=== PATIENT | male | born 1980 | race Caucasian/White ===

== ENCOUNTER 2019-07-19 19:48 | Emergency (ER) | payer OTHER ==
[2019-07-19 20:16] VITALS: BMI 22.4
--- NOTE | 2019-07-19 20:16 | PDOC ---
History of Present Illness - General Chief Complaint: CVA/TIA Stated Complaint: LT HAND NUMBNESS Time Seen by Provider: 07/19/19 20:15 History Source: Patient Exam Limitations: No Limitations - History of Present Illness Initial Comments: 07/19/19 20:32 PCP: Dr. Cook HPI: 39yo M pmh DM, HTN, Hypothyroidism, Bipolar disorder presenting with 2 days of L had numbness in all fingers. Patient reports that numbness started at 4PM on 07/17/2019. He presented to [facility], was given 2L IVF, Insulin, discharged and told he would always have numbness. He reports the numbness has been unchanged over this whole period. Denies any weakness, changes in vision, difficulty speaking / finding words, walking. He says the only thing that bothers him is the numbness - which he says is equal throughout all five digits. Last PCP visit was 2-3 months ago, stopped taking his metformin due to impotence he attributes as a side effect. EMS BGM was 152 en route. No numbness in RUE. All: PCN and Sulfa Drugs --> Anaphylaxis Meds: Per chart PMH: As above PSH: Tonsils / Adenoids, Remotely Past History - Travel Traveled outside of the country in the last 30 days: No Close contact w/someone who was outside of country & ill: No - Past Medical History Allergies/Adverse Reactions: Allergies Allergy/AdvReac Type Severity Reaction Status Date / Time No Known Allergies Allergy Verified 07/19/19 20:16 Home Medications: Ambulatory Orders Amoxicillin/Potassium Clav [Augmentin 875-125 Tablet] 1 each PO BID 7 Days #14 tablet 07/19/19 Neuro Specific PMHX - Complaint Specific PMHX Glaucoma: No Herniated Disk: No Laminectomy: No Migraine: No Multiple Sclerosis: No Neuropathy: No TIA: No Review of Systems - Review of Systems Able to Perform ROS?: Yes Is the patient limited [place]an proficient: Yes Constitutional: No: Chills, Diaphoresis, Fever, Weight Stable HEENTM: No: Recent change in vision, Double Vision, Nose Congestion, Throat Pain Respiratory: No: Cough, Orthopnea, Shortness of Breath, Wheezing, Productive cough Cardiac (ROS): No: Chest Pain, Irregular Heart Rate, Lightheadedness, Palpitations, Syncope, Chest Tightness ABD/GI: No: Blood Streaked Bowels, Constipated, Diarrhea, Nausea, Poor Appetite , Poor Fluid Intake, Rectal Bleeding, Vomiting : No: Burning, Dysuria, Frequency Musculoskeletal: No: Muscle Pain, Muscle Weakness Integumentary: No: Pallor, Pruritus, Rash, Sweating Neurological: No: Headache, Numbness, Tingling, Weakness Psychiatric: No: Stressors, Change in Appetite Endocrine: No: Increased Hunger, Increased Thirst, Increased Urine, Unexplained Weight Gain, Unexplained Weight Loss Hematologic/Lymphatic: No: Anemia, Blood Clots, Easy Bleeding All Other Systems: Reviewed and Negative *Physical Exam - Physical Exam 07/19/19 20:34 Vitals reviewed, AFVSS GEN: Well appearing, appears stated age, NAD, comfortable. AAOx3. HEENT: NCAT, EOMI, PERRL. Sclera anicteric, noninjected. No facial asymmetry. Moist mucous membranes. Normal voice. Trachea midline. CV: RRR, S1/S2, no murmurs / rubs / gallops appreciated. LUNG: CTAB, normal work of breathing. No wheezes, rales, rhonchi. No cough. Speaking full sentences. GI: Soft, NTND, +BS, no guarding, no rebound. No masses. Neg CVAT b/l. EXTREMITIES: 2+ distal pulses. No LE edema. No obvious deformities of all extremities. SKIN: Warm, dry, no rashes appreciated, non-jaundiced. PSYCH: Normal mood and affect. Cooperative and appropriate. NEURO: CN 2-12 intact. Moving all extremities well, normal gait. Normal strength throughout. Sensation reduced L fingers. Otherwise normal. Normal [id number] (mild resting tremor, chronic), normal rapid alternating movements. NIH Stroke Scale - Last Known Well Date/Time & Onset Date Last Known Well: 07/17/19 Time Last Known Well: 16:00 - Initial Evaluation Level of consciousness: Alert Ask patient the month and their age: Answers both correctly Ask patient to open & close eyes; make fist and let go: Obeys both correctly Best gaze (horizontal eye movement): Normal Visual field testing: No visual field loss Facial paresis (Show teeth/raise eyebrows/close eyes tight): Normal symmetrical movement Motor Function: Left Arm: Normal Motor Function: Right Arm: Normal (extends arm 90 (or 45) degrees for 10 seconds without drift Motor Function: Left Leg: Normal (extends leg 30 degrees for 5 seconds without drift) Motor Function: Right Leg: Normal (extends leg 30 degrees for 5 seconds without drift) Limb Ataxia: No ataxia Sensory(Use pinprick test arms,legs,trunk,face/side to side): Normal Best language (Describe picture, name items, read sentences): No Aphasia Dysarthria (read several words): Normal articulation Extinction and Inattention: No abnormality - Total Score NIH Stroke Scale Score: 0 tPA Exclusion checklist 3-4.5h - Time Elapsed Date last known well: 07/17/19 Time last known well: 16:00 Elaspsed time: 2 Day(s) and 8 Hour(s) and 0 Minutes - Thrombolytic Therapy Candidate Is patient eligible for thrombolytic therapy: No - Exclusion Criteria 3-4.5 hr SBP greater than 185 or DBP greater than 110mmHg despite tx: No Recent IC/spinal surgery,head trauma or stroke<3mos.: No Hx IC hemorrhage, IC neoplasm, AV malformation or aneurysm: No Active internal bleeding: No Blding diathesis(low plt ct, inc PTT,INR>1.7 or use of NOAC): No Symptoms suggest subarachnoid hemorrhage: No CT demonstrates multilobar infarct(>1/3 cerebral hemiphere): No Arterial puncture at noncompressible site in previous 7 days: No Blood glucose concentration less than 50mg/dL (2.7mmol/L): No - Relative Exclusion Criteria 3-4.5 hr Life expectancy <1 yr or severe co-morbid illness: No : No Patient/family refused: No Rapid improvement: No Stroke severity too mild: No Recent acute RI (w/in previous 3 months): No Seizure at onset with postictal residual neuro impairments: No Major surgery or serious trauma w/in previous 14 days: No Recent GI or hemorrhage (w/in previous 21 days): No - Add'l Relative Exclusion 3-4.5 hr Age > 80: No Hx of both diabetes AND prior ischemic stroke: No Taking an oral anticoagulant regardless of INR: No NIHSS >25: No - Ineligibility reason(s) Reasons No tPA given: Outside of window - delayed arrival TIA Risk Factors - ABCD Score Age: Age < 60 Blood Pressure: SBP < 140 and DBP < 90 Duration: TIA duration = or > 60min Diabetes: Yes Critical Care Time/MDM Note - Medical Decision Making Note: 07/19/19 20:37 39yo M pmh DM, HTN, Hypothyroidism, Bipolar disorder presenting with 2 days of L had numbness in all fingers. History notable for numbness for several days. Exam notable for normal neuro exam aside from sensation in a non-focal distribution, normal vitals. Outside the window for TPA. NIHSS 0. 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 - CBC, CMP Dispo: Home 07/19/19 21:10 - CT Cervical Spine - Robaxin 1000 mg - Motrin 600 mg 07/19/19 22:25 - Glucose elevated on CMP - 1L IVF given Dispo: Home 07/19/19 23:00 - CT without nerve impingement - Fluid in mastoid air cells, thickening / fluid in external auditory canal 07/19/19 23:30 - Augmentin for ear infection - BGM s/p IVF, Insulin as appropriate 07/20/19 00:00 - BGM 421 - 6 U Regular Insulin Dispo: Home Discharge - Discharge Information Problems reviewed: Yes Clinical Impression/Diagnosis: Paresthesia and pain of left extremity, Elevated blood sugar Otitis media Qualifiers: Otitis media type: other nonsuppurative Chronicity: unspecified Laterality: left Qualified Code(s): H65.92 - Unspecified nonsuppurative otitis media, left ear Condition: Improved Disposition: HOME - Admission No - Additional Discharge Information Prescriptions: Amoxicillin/Potassium Clav [Augmentin 875-125 Tablet] 1 each PO BID 7 Days #14 tablet - Follow up/Referral Referrals: Adarsh Cook [Primary Care Provider] - Adrash Auguste MD [Staff Physician] - - Patient Discharge Instructions Additional Instructions: Continue your home medications as prescribed. A prescription for antibiotics has been sent to your pharmacy. Please pick this up and take it as directed. Call Dr. Auguste (ENT) for evaluation of your ear symptoms. Follow up with your primary care doctor early next week. It is important to discuss your diabetes medications and management as we discussed. Return to the ED for any new or concerning symptoms. - Post Discharge Activity
[2019-07-19] MEDS ORDERED: IBUPROFEN 600 MG TABLET (FP) PO ONE ×2 (21:07→21:15)
[2019-07-19] MEDS ORDERED: METHOCARBAMOL 500 MG TABLET PO ONE (21:08)
--- NOTE | 2019-07-19 21:12 | PDOC ---
Attending Attestation - Resident Resident Name: Liang Moran - ED Attending Attestation I have performed the following: I have examined & evaluated the patient, The case was reviewed & discussed with the resident, I agree w/resident's findings & plan - HPI HPI: 07/21/19 21:47 Pt comes with left fingertip numbness. He called an ambulance. Here he is hanging out and eating junk food from the vending machines. - Physicial Exam PE: 07/19/19 23:29 Pt comes with left fingertip numbness. Pt has no strength deficit, no other numbness; no chemical exposure. Afebrile VSS normal neuro exam HEENT: left TM not visualized ; likely middle ear infection Heart/lungs normal Abd soft NT ND No extremity tenderness no rashes - Medical Decision Making 07/19/19 23:31 Pt is depressed he doesn't take any DM meds. He stopped taking metformin because he is experiencing erectile dysfn. He and tell me that their home is a "filthy" mess, as nobody cleans, and as they throw all their garbage in the home. I explained to patient that he needs to control blood sugar, as high sugar can cause ED High sugar can also contribute to worsening infections. Pt will be treated for his OM Pt has been advised to stop using qtips He will be given Dr. Auguste's name for ENT follow up
[2019-07-19] MEDS ORDERED: METHOCARBAMOL 500 MG TABLET ONE (21:15)
[2019-07-19 21:32] LABS: BASO % 0.9 % (0-2.0); EOS % 0.5 % (0-4.5); HEMATOCRIT 45.3 % (35.4-49); HEMOGLOBIN 15.6 GM/dL (11.7-16.9); LYMPH % 31.8 % (8-40); MCH 29.3 pg (25.7-33.7); MCHC 34.4 g/dl (32.0-35.9); MEAN CELL VOLUME 85.2 fl (80-96); MEAN PLT VOLUME 8.4 fl (7.5-11.1); MONO % 5.3 % (3.8-10.2); NEUT % 61.5 % (42.8-82.8); PLATELET COUNT 246 K/MM3 (134-434); RBC 5.32 M/mm3 (4.00-5.60); RDW 15.1 % (11.9-15.9); WHITE BLOOD COUNT 10.8 K/mm3 (4.0-10.0)
[2019-07-19 22:12] LABS: ALBUMIN 4.2 g/dl (3.4-5.0); BILIRUBIN,TOTAL 0.6 mg/dL (0.2-1); BLOOD UREA NITROGEN 11.2 mg/dL (7-18); CALCIUM 8.8 mg/dL (8.5-10.1); CREATININE 0.9 mg/dL (0.55-1.3); TOT PROT 7.6 g/dl (6.4-8.2)
[2019-07-19] MEDS ORDERED: SODIUM CHLORIDE 1,000 ML IV STA (22:24)
[2019-07-19] MEDS ORDERED: AMOX TR/POT CLAV 875MG/125MG TABLETS (FP) PO ONE (23:27)
[2019-07-19] MEDS ORDERED: AMOX TR/POT CLAV 875MG/125MG TABLETS (FP) ONE (23:33)
[2019-07-20] MEDS ORDERED: INSULIN REGULAR HUMAN 100 UNITS/ML *VIAL IVPUSH ONE
[2019-07-20] MEDS ORDERED: INSULIN REGULAR HUMAN 100 UNITS/ML *VIAL ONE (00:02)
[2019-07-20 00:22] VITALS: BP 120/80; PULSE 86
== END 2019-07-20 00:23 | disposition home or self-care (01) ==
LOC: JER 19:48
PROC: 3E0337Z Introduction of Electrolytic and Water Balance Substance into Peripheral Vein, Percutaneous Approach (ICD-10-PCS; principal; 2019-07-19)
DX: R20.0 Anesthesia of skin (principal); E11.65 Type 2 diabetes mellitus with hyperglycemia; H65.92 Unspecified nonsuppurative otitis media, left ear; I10 Essential (primary) hypertension; E03.8 Other specified hypothyroidism; F31.9 Bipolar disorder, unspecified; Z88.0 Allergy status to penicillin; Z88.2 Allergy status to sulfonamides; Z91.14 Patient's other noncompliance with medication regimen; F42.3 Hoarding disorder
CPT/HCPCS: 36415; 72125-TC; 80053; 82962; 85025; 96360; 99282-25; J7030

== ENCOUNTER 2024-08-05 19:49 | Emergency (ER) | payer OTHER ==
[2024-08-05 20:09] VITALS: BMI 15.1
[2024-08-05] MEDS: SODIUM CHLORIDE 0.9% 500 ML INFUS.BAG IV ONE (20:56)
[2024-08-05 20:59] LABS: VENOUS BASE EXCESS -5.2 mmol/L (-2-2); VENOUS O2 SATURATION 71.3 % (70-80); VENOUS PCO2 30.8 mmHg (38-52); VENOUS PH 7.392 (7.310-7.410)
[2024-08-05 21:05] LABS: HEMATOCRIT 47.1 % (35.4-49); HEMOGLOBIN 15.5 GM/dL (11.7-16.9); MCH 27.7 pg (25.7-33.7); MCHC 32.8 g/dl (32.0-35.9); MEAN CELL VOLUME 84.5 fl (80-96); MEAN PLT VOLUME 7.6 fl (7.5-11.1); PLATELET COUNT 294 10^3/uL (134-434); RBC 5.58 M/mm3 (4.00-5.60); RDW 14.3 % (11.9-15.9); WHITE BLOOD COUNT 11.2 K/mm3 (4.0-10.0)
[2024-08-05 22:33] LABS: ALBUMIN 3.3 g/dl (3.4-5.0); BILIRUBIN,TOTAL 2.6 mg/dL (0.2-1); BLOOD UREA NITROGEN 55.1 mg/dL (7-18); CALCIUM 9.3 mg/dL (8.5-10.1); CREATININE 1.8 mg/dL (0.55-1.3); MAGNESIUM 2.1 mg/dL (1.8-2.4); POTASSIUM 5.3 mmol/L (3.5-5.1); TOT PROT 6.1 g/dl (6.4-8.2)
[2024-08-05] MEDS ORDERED: INSULIN REGULAR HUMAN 100 UNITS/ML *VIAL ONE (22:48)
[2024-08-05] MEDS: LACTATED RINGERS SOLUTION 1000 ML INFUS.BAG IV ONE (22:58)
[2024-08-05] MEDS: INSULIN REGULAR HUMAN 100 UNITS/ML *VIAL IVPUSH ONE (22:58)
[2024-08-05] MEDS: MIDAZOLAM HCL 2 MG/2 ML SINGLE DOSE VIAL IVPUSH ONE (23:11)
[2024-08-05] MEDS: HALOPERIDOL LACTATE 5 MG/ML IM ONE (23:11)
[2024-08-06 00:05] LABS: MACROCYTOSIS 1+; OVALOCYTE 1+
[2024-08-06] MEDS: INSULIN REGULAR 100 UNITS in SODIUM CHLORIDE 99 ML IVPB SCH (00:30)
[2024-08-06 01:46] LABS: POTASSIUM 4.3 mmol/L (3.5-5.1)
[2024-08-06 01:48] LABS: CALCIUM 8.2 mg/dL (8.5-10.1)
[2024-08-06] MEDS: LEVOTHYROXINE SODIUM 100 MCG 5 ML VIAL IVPUSH SCH (01:50)
[2024-08-06 01:52] LABS: CREATININE 1.5 mg/dL (0.55-1.3)
[2024-08-06] MEDS: ACETYLCYSTEINE IVPB ONE (01:53)
[2024-08-06] MEDS: WATER IVPB ONE (01:53)
[2024-08-06] MEDS: DEXTROSE 5% IVPB ONE (01:53)
[2024-08-06 01:54] LABS: INR 2.59 (0.83-1.09); PROTHROMBIN TIME (PATIENT) 28.2 SEC (9.7-13.0)
[2024-08-06 02:02] VITALS: BP 124/87; PULSE 80; RESP 16; TEMP 97.6
[2024-08-06] MEDS ORDERED: LEVOTHYROXINE SODIUM 100 MCG 5 ML VIAL IVPUSH ONE (22:49)
== END 2024-08-06 02:02 | disposition short-term general hospital (02) ==
LOC: JER 19:49
PROC: 3E033VG Introduction of Insulin into Peripheral Vein, Percutaneous Approach (ICD-10-PCS; principal; 2024-08-05)
DX: E13.10 Other specified diabetes mellitus with ketoacidosis without coma (principal); E03.9 Hypothyroidism, unspecified; R74.01 Elevation of levels of liver transaminase levels; R11.2 Nausea with vomiting, unspecified; Z20.822 Contact with and (suspected) exposure to COVID-19
CPT/HCPCS: 0241U-QW; 36415; 71045-TC-FY; 74177-TC; 76705-TC; 80048; 80053; 80307; 82010; 82248; 82803; 82962; 83690; 83735; 84439; 84443; 85025; 85610; 86705; 86708; 87340; 87517; 87522; 93005; 93010; 99291; Q9967

== ENCOUNTER 2024-08-14 12:27 | Inpatient (IN) | payer OTHER ==
[2024-08-14 12:53] VITALS: RESP 18; BMI 27.1
[2024-08-14 14:17] LABS: VENOUS BASE EXCESS 2.2 mmol/L (-2-2); VENOUS O2 SATURATION 62.7 % (70-80); VENOUS PCO2 49.7 mmHg (38-52); VENOUS PH 7.371 (7.310-7.410)
[2024-08-14 14:18] LABS: BASO % 0.1 % (0-2.0); EOS % 0.4 % (0-4.5); HEMATOCRIT 36.2 % (35.4-49); HEMOGLOBIN 11.5 GM/dL (11.7-16.9); LYMPH % 10.2 % (8-40); MCH 28.9 pg (25.7-33.7); MCHC 31.7 g/dl (32.0-35.9); MEAN CELL VOLUME 91.2 fl (80-96); MEAN PLT VOLUME 8.2 fl (7.5-11.1); MONO % 7.9 % (3.8-10.2); NEUT % 81.4 % (42.8-82.8); PLATELET COUNT 155 10^3/uL (134-434); RBC 3.97 M/mm3 (4.00-5.60); RDW 15.1 % (11.9-15.9); WHITE BLOOD COUNT 8.1 K/mm3 (4.0-10.0)
[2024-08-14] MEDS: LACTATED RINGERS SOLUTION 1000 ML INFUS.BAG IV ONE (14:18)
[2024-08-14 14:24] LABS: INR 1.03 (0.83-1.09); PROTHROMBIN TIME (PATIENT) 11.2 SEC (9.7-13.0)
[2024-08-14 14:25] LABS: PH,URINE 6.5 (5.0-8.0); URINE APPEARANCE CLEAR; URINE BILIRUBIN NEGATIVE (NEGATIVE); URINE COLOR YELLOW; URINE GLUCOSE (UA) 3+ (NEGATIVE); URINE KETONE NEGATIVE (NEGATIVE); URINE LEUK ESTERASE NEGATIVE (NEGATIVE); URINE NITRITE NEGATIVE (NEGATIVE); URINE PROTEIN NEGATIVE (NEGATIVE); URINE UROBILINOGEN 0.2 mg/dL (0.2-1.0)
[2024-08-14 14:27] LABS: ACTIVATED PTT 29.5 SECONDS (25.2-36.5)
[2024-08-14 14:35] LABS: URINE AMPHETAMINES NEGATIVE (NEGATIVE); URINE BARBITURATES NEGATIVE (NEGATIVE)
[2024-08-14 14:36] LABS: COCAINE, UR NEGATIVE (NEGATIVE); METHADONE, UR NEGATIVE (NEGATIVE); OPIATES, URI NEGATIVE (NEGATIVE); PHENCYCLIDINE,URINE NEGATIVE (NEGATIVE); URINE BENZODIAZEPINES NEGATIVE (NEGATIVE)
[2024-08-14 14:38] LABS: CHLORIDE 86 mmol/L (98-107); POTASSIUM 4.4 mmol/L (3.5-5.1); SODIUM 125 mmol/L (136-145)
[2024-08-14 14:42] LABS: ALBUMIN 3.2 g/dl (3.4-5.0); ANION GAP 10 mmol/L (4-13); CALCIUM 9.3 mg/dL (8.5-10.1); CO2 28 mmol/L (21-32); MAGNESIUM 1.9 mg/dL (1.8-2.4)
[2024-08-14 14:45] LABS: CREATININE 1.3 mg/dL (0.55-1.3); SGOT/AST 55 U/L (15-37); SGPT/ALT 690 U/L (13-61)
[2024-08-14 14:46] LABS: BILIRUBIN,TOTAL 1.5 mg/dL (0.2-1); TOT PROT 6.1 g/dl (6.4-8.2)
[2024-08-14 14:55] LABS: LACTIC ACID 4.6 mmol/L (0.4-2.0)
[2024-08-14 15:07] LABS: GLUCOSE,RANDOM 1082 mg/dL (74-106)
[2024-08-14 15:08] LABS: ALK PHOS 794 U/L (45-117); BLOOD UREA NITROGEN 12.2 mg/dL (7-18)
[2024-08-14] MEDS ORDERED: INSULIN REGULAR 100 UNITS in SODIUM CHLORIDE 99 ML IVPB SCH (15:30)
[2024-08-14] MEDS: INSULIN DRIP - PLEASE ORDER UNDER SETS NR ONE (16:29)
[2024-08-14] MEDS: INSULIN REGULAR 100 UNITS in SODIUM CHLORIDE 99 ML IVPB SCH (16:29)
[2024-08-14] MEDS ORDERED: INSULIN REGULAR HUMAN 100 UNITS/ML *VIAL* (FOR IVP) IVPUSH ONE (17:56)
[2024-08-14] MEDS: POTASSIUM CHLORIDE 20 MEQ in SODIUM CHLORIDE 1,000 ML IV STA (18:13)
[2024-08-14] MEDS: WATER IVPB ONE (18:15)
[2024-08-14] MEDS: POTASSIUM CHLORIDE 10 MEQ in SODIUM CHLORIDE 1,000 ML IV STA (18:15)
[2024-08-14] MEDS: DEXTROSE 5% IVPB ONE (18:15)
[2024-08-14] MEDS: ACETYLCYSTEINE IVPB ONE (18:15)
[2024-08-14 18:22] LABS: CHLORIDE 84 mmol/L (98-107); POTASSIUM 4.1 mmol/L (3.5-5.1); SODIUM 121 mmol/L (136-145)
[2024-08-14 18:25] LABS: ANION GAP 9 mmol/L (4-13); CALCIUM 8.5 mg/dL (8.5-10.1); CO2 27 mmol/L (21-32)
[2024-08-14 18:27] LABS: BLOOD UREA NITROGEN 12.7 mg/dL (7-18)
[2024-08-14 18:29] LABS: CREATININE 1.2 mg/dL (0.55-1.3)
[2024-08-14 18:31] LABS: GLUCOSE,RANDOM 874 mg/dL (74-106)
[2024-08-14 20:19] VITALS: BP 121/76; PULSE 87; TEMP 98.2
== END 2024-08-15 01:16 | disposition left against medical advice (07) | DRG 639 ==
LOC: JER 12:27 → JERBED 19:34
PROVIDERS: ADMIT Internal Medicine Pulmonary Disease; ATTEND Internal Medicine Pulmonary Disease
DX: E11.00 Type 2 diabetes mellitus with hyperosmolarity without nonketotic hyperglycemic-hyperosmolar coma (NKHHC) (principal); I10 Essential (primary) hypertension; E03.9 Hypothyroidism, unspecified; F31.9 Bipolar disorder, unspecified; Z79.84 Long term (current) use of oral hypoglycemic drugs
CPT/HCPCS: 0241U-QW; 36415; 71045-TC-FY; 80048; 80053; 80307; 81003; 82010; 82803; 82962; 83605; 83690; 83735; 84100; 84439; 84443; 84484; 85025; 85610; 85730; 87086; 93005; 93010; 99291

== ENCOUNTER 2024-08-31 19:32 | Emergency (ER) | payer OTHER ==
[2024-08-31 19:54] VITALS: BP 139/82; PULSE 80; RESP 18; TEMP 98.2; BMI 19.0
[2024-08-31] MEDS ORDERED: NICOTINE 21 MG/24 HOURS TOPICAL PATCH ONE (20:58)
[2024-08-31] MEDS: LACTATED RINGERS SOLUTION 1000 ML INFUS.BAG IV ONE (21:17)
[2024-08-31] MEDS: NICOTINE 21 MG/24 HOURS TOPICAL PATCH TD ONE (21:18)
[2024-08-31 21:20] LABS: ABSOLUTE IMMATURE GRANULOCYTES 0.03 x10^3/uL (0.0-0.031); BASOPHILS # 0.07 x10^3/uL (0.01-0.08); EOSINOPHILS # 0.07 x10^3/uL (0.04-0.54); HEMATOCRIT 41.2 % (40.1-51.0); HEMOGLOBIN 13.3 g/dL (13.7-17.5); MCHC 32.3 g/dl (32.3-36.5); MEAN PLT VOLUME 9.6 fl (9.4-12.4); MONOCYTE # 0.53 x10^3/uL (0.30-0.82); MONOCYTE % 7.7 % (5.3-12.2); PLATELET COUNT # 257 x10^3/uL (163-337); RDW 16.1 % (12.1-15.9)
[2024-08-31 21:27] LABS: VENOUS BASE EXCESS -1.4 mmol/L (-2-2); VENOUS O2 SATURATION 74.4 % (70-80); VENOUS PCO2 39.8 mmHg (38-52); VENOUS PH 7.388 (7.310-7.410)
[2024-08-31 21:35] LABS: CHLORIDE 101 mmol/L (98-107); POTASSIUM 3.6 mmol/L (3.5-5.1); SODIUM 136 mmol/L (136-145)
[2024-08-31 21:37] LABS: BLOOD UREA NITROGEN 12.1 mg/dL (7-18)
[2024-08-31 21:38] LABS: ALBUMIN 3.3 g/dl (3.4-5.0); ANION GAP 7 mmol/L (4-13); CALCIUM 8.4 mg/dL (8.5-10.1); CO2 28 mmol/L (21-32); MAGNESIUM 1.8 mg/dL (1.8-2.4)
[2024-08-31 21:41] LABS: CREATININE 0.8 mg/dL (0.55-1.3); SGOT/AST 37 U/L (15-37); SGPT/ALT 65 U/L (13-61)
[2024-08-31 21:42] LABS: BILIRUBIN,TOTAL 0.8 mg/dL (0.2-1); PHOSPHOROUS 3.1 mg/dL (2.5-4.9); TOT PROT 5.9 g/dl (6.4-8.2)
[2024-08-31 21:44] LABS: ALK PHOS 209 U/L (45-117)
[2024-08-31] MEDS ORDERED: POTASSIUM CHLORIDE ORAL LIQUID 20 MEQ/15 ML PO ONE (21:55)
[2024-08-31 21:58] LABS: GLUCOSE,RANDOM 543 mg/dL (74-106)
[2024-08-31] MEDS: INSULIN REGULAR HUMAN 100 UNITS/ML *VIAL IVPUSH ONE (22:19)
[2024-08-31] MEDS ORDERED: INSULIN ASPART SLIDING SCALE (NOVOLOG) 1 VIAL SQ ONE (22:33)
[2024-08-31] MEDS ORDERED: KCL 10 MEQ IVPB 10 MEQ/100 ML INFUS.BAG IVPB ONE (22:36)
[2024-08-31] MEDS: KCL 10 MEQ IVPB 10 MEQ/100 ML INFUS.BAG IVPB SCH (22:46)
[2024-08-31] MEDS: INSULIN ASPART SLIDING SCALE (NOVOLOG) 1 VIAL SQ SCH (22:53)
[2024-09-01] MEDS ORDERED: KCL 10 MEQ IVPB 10 MEQ/100 ML INFUS.BAG IVPB ONE (00:47)
[2024-09-01] MEDS: LACTATED RINGERS SOLUTION 1000 ML INFUS.BAG IV ONE (01:21)
[2024-09-01] MEDS: INSULIN (NOVOLOG) ASPART 100 UNITS/ML 10ML VIAL SQ ONE (01:55)
[2024-09-01] MEDS ORDERED: INSULIN ASPART SLIDING SCALE (NOVOLOG) 1 VIAL SQ SCH (22:00)
== END 2024-09-01 02:08 | disposition home or self-care (01) ==
LOC: JER 19:32
DX: E11.65 Type 2 diabetes mellitus with hyperglycemia (principal); R19.7 Diarrhea, unspecified; R63.1 Polydipsia; R35.89 Other polyuria; R20.0 Anesthesia of skin; R20.2 Paresthesia of skin
CPT/HCPCS: 36415; 80053; 82010; 82803; 82962; 83735; 84100; 85025; 93005; 93010; 99284-25

== ENCOUNTER 2024-09-05 18:52 | Emergency (ER) | payer OTHER ==
[2024-09-05 19:30] VITALS: BP 134/77; PULSE 76; RESP 18; BMI 21.7
[2024-09-05 20:07] VITALS: TEMP 97.7
== END 2024-09-05 20:21 | disposition left against medical advice (07) ==
LOC: JER 18:52
DX: E11.65 Type 2 diabetes mellitus with hyperglycemia (principal)
CPT/HCPCS: 99283-25; 99284-25

== ENCOUNTER 2024-09-09 03:46 | Emergency (ER) | payer OTHER ==
[2024-09-09 04:06] VITALS: BP 146/89; PULSE 83; RESP 17; TEMP 97.7; BMI 17.6
[2024-09-09] MEDS: INSULIN REGULAR HUMAN 100 UNITS/ML *VIAL IVPUSH ONE (04:31)
[2024-09-09] MEDS: LACTATED RINGERS SOLUTION 1000 ML INFUS.BAG IV ONE (04:55)
[2024-09-09 04:56] LABS: ABSOLUTE IMMATURE GRANULOCYTES 0.01 x10^3/uL (0.0-0.031); BASOPHILS # 0.03 x10^3/uL (0.01-0.08); EOSINOPHIL % 1.5 % (0.8-7.0); EOSINOPHILS # 0.07 x10^3/uL (0.04-0.54); HEMATOCRIT 40.3 % (40.1-51.0); HEMOGLOBIN 12.9 g/dL (13.7-17.5); MEAN CELL VOLUME 91.8 fl (79.0-92.2); MEAN PLT VOLUME 10.1 fl (9.4-12.4); MONOCYTE # 0.48 x10^3/uL (0.30-0.82); MONOCYTE % 10.1 % (5.3-12.2); PLATELET COUNT 144 x10^3/uL (163-337); VENOUS BASE EXCESS -2.4 mmol/L (-2-2); VENOUS O2 SATURATION 84.1 % (70-80); VENOUS PCO2 39.3 mmHg (38-52); VENOUS PH 7.376 (7.310-7.410)
[2024-09-09 05:40] LABS: CHLORIDE 99 mmol/L (98-107); POTASSIUM 4.1 mmol/L (3.5-5.1); SODIUM 132 mmol/L (136-145)
[2024-09-09 05:42] LABS: CALCIUM 8.4 mg/dL (8.5-10.1)
[2024-09-09 05:43] LABS: ALBUMIN 3.1 g/dl (3.4-5.0); ANION GAP 6 mmol/L (4-13); BLOOD UREA NITROGEN 22.4 mg/dL (7-18); CO2 27 mmol/L (21-32)
[2024-09-09] MEDS ORDERED: INSULIN ASPART SLIDING SCALE (NOVOLOG) 1 VIAL SQ ONE (05:44)
[2024-09-09 05:46] LABS: CREATININE 0.9 mg/dL (0.55-1.3); SGOT/AST 40 U/L (15-37); SGPT/ALT 60 U/L (13-61)
[2024-09-09] MEDS: INSULIN REGULAR HUMAN 100 UNITS/ML *VIAL SQ ONE (05:46)
[2024-09-09 05:47] LABS: BILIRUBIN,TOTAL 0.5 mg/dL (0.2-1); TOT PROT 5.9 g/dl (6.4-8.2)
[2024-09-09 06:05] LABS: ALK PHOS 165 U/L (45-117); GLUCOSE,RANDOM 744 mg/dL (74-106)
== END 2024-09-09 07:22 | disposition home or self-care (01) ==
LOC: JER 03:46
DX: E11.65 Type 2 diabetes mellitus with hyperglycemia (principal); I10 Essential (primary) hypertension
CPT/HCPCS: 36415; 80053; 82010; 82803; 82962; 85025; 99283-25

== ENCOUNTER 2024-09-10 21:23 | Emergency (ER) | payer OTHER ==
[2024-09-10 21:29] VITALS: BP 148/91; PULSE 81; RESP 18; TEMP 98.4; BMI 19.8
[2024-09-10 23:05] LABS: ABSOLUTE IMMATURE GRANULOCYTES 0.02 x10^3/uL (0.0-0.031); BASOPHILS # 0.04 x10^3/uL (0.01-0.08); EOSINOPHIL % 1.5 % (0.8-7.0); EOSINOPHILS # 0.08 x10^3/uL (0.04-0.54); HEMATOCRIT 41.9 % (40.1-51.0); HEMOGLOBIN 13.4 g/dL (13.7-17.5); MEAN CELL VOLUME 92.9 fl (79.0-92.2); MEAN PLT VOLUME 10.1 fl (9.4-12.4); MONOCYTE # 0.45 x10^3/uL (0.30-0.82); MONOCYTE % 8.6 % (5.3-12.2); PLATELET COUNT 167 x10^3/uL (163-337); VENOUS BASE EXCESS 0.7 mmol/L (-2-2); VENOUS O2 SATURATION 57.5 % (70-80); VENOUS PH 7.351 (7.310-7.410)
[2024-09-10 23:27] LABS: CHLORIDE 97 mmol/L (98-107); POTASSIUM 4.3 mmol/L (3.5-5.1); SODIUM 132 mmol/L (136-145)
[2024-09-10 23:29] LABS: ALBUMIN 3.3 g/dl (3.4-5.0); BLOOD UREA NITROGEN 24.4 mg/dL (7-18); CALCIUM 8.6 mg/dL (8.5-10.1)
[2024-09-10 23:30] LABS: ANION GAP 7 mmol/L (4-13); CO2 28 mmol/L (21-32); MAGNESIUM 1.7 mg/dL (1.8-2.4)
[2024-09-10 23:32] LABS: SGOT/AST 44 U/L (15-37); SGPT/ALT 68 U/L (13-61)
[2024-09-10 23:33] LABS: PHOSPHOROUS 4.3 mg/dL (2.5-4.9)
[2024-09-10 23:34] LABS: BILIRUBIN,TOTAL 0.6 mg/dL (0.2-1); TOT PROT 6.2 g/dl (6.4-8.2)
[2024-09-10 23:35] LABS: ALK PHOS 183 U/L (45-117)
[2024-09-10 23:42] LABS: GLUCOSE,RANDOM 707 mg/dL (74-106)
[2024-09-10] MEDS ORDERED: MAGNESIUM OXIDE 400 MG TABLET (FP) ONE (23:44)
[2024-09-10] MEDS ORDERED: POTASSIUM CHLORIDE ORAL LIQUID 20 MEQ/15 ML ONE (23:46)
[2024-09-10] MEDS: MAGNESIUM OXIDE 400 MG TABLET (FP) PO ONE (23:49)
[2024-09-10] MEDS: POTASSIUM CHLORIDE ORAL LIQUID 20 MEQ/15 ML PO ONE (23:49)
[2024-09-10] MEDS ORDERED: INSULIN GLARGINE (LANTUS) 100 UNITS/ML UNITS SQ ONE (23:55)
[2024-09-10] MEDS ORDERED: INSULIN ASPART SLIDING SCALE (NOVOLOG) 1 VIAL SQ ONE (23:55)
[2024-09-11] MEDS: INSULIN GLARGINE (LANTUS) 100 UNITS/ML UNITS SQ ONE (00:01)
[2024-09-11] MEDS: INSULIN (NOVOLOG) ASPART 100 UNITS/ML 10ML VIAL SQ ONE (00:01)
[2024-09-11] MEDS ORDERED: INSULIN GLARGINE (LANTUS) 100 UNITS/ML UNITS SQ SCH (22:00)
== END 2024-09-11 00:32 | disposition left against medical advice (07) ==
LOC: JER 21:23
DX: E11.00 Type 2 diabetes mellitus with hyperosmolarity without nonketotic hyperglycemic-hyperosmolar coma (NKHHC) (principal); R20.2 Paresthesia of skin; R51.9 Headache, unspecified
CPT/HCPCS: 36415; 80053; 82010; 82803; 82962; 83690; 83735; 83930; 84100; 85025; 99283-25

== ENCOUNTER 2024-09-11 19:15 | Emergency (ER) | payer OTHER ==
[2024-09-11 19:25] VITALS: BP 147/81; PULSE 75; RESP 18; TEMP 98.4; BMI 16.9
[2024-09-11] MEDS ORDERED: ACETAMINOPHEN 325 MG TABLET (FP) ONE (20:13)
[2024-09-11] MEDS: ACETAMINOPHEN 500 MG TABLET (FP) PO ONE (20:17)
== END 2024-09-11 22:08 | disposition home or self-care (01) ==
LOC: JER 19:15
DX: E11.65 Type 2 diabetes mellitus with hyperglycemia (principal); R20.2 Paresthesia of skin; R51.9 Headache, unspecified
CPT/HCPCS: 82962; 99283-25

== ENCOUNTER 2024-09-13 21:01 | Emergency (ER) | payer OTHER ==
[2024-09-13 21:29] VITALS: BP 128/79; PULSE 85; RESP 18; TEMP 98; BMI 19.6
== END 2024-09-13 22:44 | disposition home or self-care (01) ==
LOC: JER 21:01
DX: E11.40 Type 2 diabetes mellitus with diabetic neuropathy, unspecified (principal); R20.0 Anesthesia of skin; R20.2 Paresthesia of skin; Z59.00 Homelessness unspecified
CPT/HCPCS: 99283-25

== ENCOUNTER 2024-09-17 00:17 | Emergency (ER) | payer OTHER ==
[2024-09-17 00:23] VITALS: BP 120/88; PULSE 72; RESP 16; TEMP 98.5; BMI 19.0
[2024-09-17] MEDS ORDERED: ACETAMINOPHEN 500 MG TABLET (FP) PO ONE (00:44)
[2024-09-17] MEDS ORDERED: IBUPROFEN 400 MG TABLET (FP) PO ONE (00:54)
[2024-09-17] MEDS: IBUPROFEN 400 MG TABLET (FP) PO ONE (01:02)
== END 2024-09-17 01:45 | disposition home or self-care (01) ==
LOC: JER 00:17
DX: E11.65 Type 2 diabetes mellitus with hyperglycemia (principal); R51.9 Headache, unspecified; R20.0 Anesthesia of skin
CPT/HCPCS: 99283-25

== ENCOUNTER 2024-09-20 16:36 | Emergency (ER) | payer OTHER ==
[2024-09-20 17:04] VITALS: BP 156/91; PULSE 64; RESP 16; TEMP 98.1; BMI 19.6
[2024-09-20] MEDS: SODIUM CHLORIDE 0.9% 500 ML INFUS.BAG IV ONE (17:44)
[2024-09-20] MEDS ORDERED: KETOROLAC TROMETHAMINE 30 MG/1 ML VIAL ONE (19:37)
[2024-09-20] MEDS: KETOROLAC TROMETHAMINE 30 MG/1 ML VIAL IM ONE (20:04)
== END 2024-09-20 20:30 | disposition home or self-care (01) ==
LOC: FER 16:36
PROC: 3E0233Z Introduction of Anti-inflammatory into Muscle, Percutaneous Approach (ICD-10-PCS; principal; 2024-09-20)
DX: E11.65 Type 2 diabetes mellitus with hyperglycemia (principal); E11.42 Type 2 diabetes mellitus with diabetic polyneuropathy; W01.198A Fall on same level from slipping, tripping and stumbling with subsequent striking against other object, initial encounter
CPT/HCPCS: 70450-TC; 71250-TC; 72125-TC; 82962; 96372; 99285-25

== ENCOUNTER 2024-10-24 17:01 | Emergency (ER) | payer OTHER ==
[2024-10-24 17:33] VITALS: BP 113/74; PULSE 75; RESP 18; TEMP 98.2; BMI 22.4
[2024-10-24] MEDS: LACTATED RINGERS SOLUTION 1000 ML INFUS.BAG IV ONE (18:39)
[2024-10-24 18:53] LABS: VENOUS BASE EXCESS -5.2 mmol/L (-2-2); VENOUS O2 SATURATION 88.4 % (70-80); VENOUS PCO2 40.1 mmHg (38-52); VENOUS PH 7.324 (7.310-7.410)
[2024-10-24 18:55] LABS: ABSOLUTE IMMATURE GRANULOCYTES 0.02 x10^3/uL (0.0-0.031); BASOPHILS # 0.02 x10^3/uL (0.01-0.08); EOSINOPHIL % 5.3 % (0.8-7.0); EOSINOPHILS # 0.28 x10^3/uL (0.04-0.54); HEMATOCRIT 40.3 % (40.1-51.0); HEMOGLOBIN 13.1 g/dL (13.7-17.5); MCHC 32.5 g/dl (32.3-36.5); MEAN CELL VOLUME 90.4 fl (79.0-92.2); MEAN PLT VOLUME 10.5 fl (9.4-12.4); MONOCYTE # 0.55 x10^3/uL (0.30-0.82); MONOCYTE % 10.4 % (5.3-12.2); PLATELET COUNT 189 x10^3/uL (163-337); RDW 12.4 % (12.1-15.9)
[2024-10-24 19:20] LABS: BLOOD UREA NITROGEN 26.9 mg/dL (7-18); CALCIUM 9.1 mg/dL (8.5-10.1); CO2 21 mmol/L (21-32); MAGNESIUM 1.7 mg/dL (1.8-2.4)
[2024-10-24 19:21] LABS: ALBUMIN 3.8 g/dl (3.4-5.0)
[2024-10-24 19:23] LABS: SGOT/AST 23 U/L (15-37); SGPT/ALT 41 U/L (13-61)
[2024-10-24 19:25] LABS: BILIRUBIN,TOTAL 0.8 mg/dL (0.2-1); TOT PROT 6.9 g/dl (6.4-8.2)
[2024-10-24 19:26] LABS: ALK PHOS 122 U/L (45-117); GLUCOSE,RANDOM 482 mg/dL (74-106)
[2024-10-24 19:47] LABS: ANION GAP 13 mmol/L (4-13); CHLORIDE 101 mmol/L (98-107); POTASSIUM 4.1 mmol/L (3.5-5.1); SODIUM 135 mmol/L (136-145)
[2024-10-24 19:53] LABS: CREATININE 1.5 mg/dL (0.55-1.3)
[2024-10-24] MEDS ORDERED: INSULIN ASPART SLIDING SCALE (NOVOLOG) 1 VIAL SQ ONE (20:05)
[2024-10-24] MEDS: INSULIN (NOVOLOG) ASPART 100 UNITS/ML 10ML VIAL SQ ONE (20:08)
== END 2024-10-24 21:45 | disposition home or self-care (01) ==
LOC: JER 17:01
PROC: 3E013VG Introduction of Insulin into Subcutaneous Tissue, Percutaneous Approach (ICD-10-PCS; principal; 2024-10-24)
DX: U07.1 COVID-19 (principal); E11.65 Type 2 diabetes mellitus with hyperglycemia; R42 Dizziness and giddiness; R52 Pain, unspecified; Z91.148 Patient's other noncompliance with medication regimen for other reason
CPT/HCPCS: 0241U-QW; 36415; 71045-TC-FY; 80053; 82010; 82803; 82962; 83735; 84484; 85025; 96372; 99284-25

== ENCOUNTER 2024-11-25 13:58 | Emergency (ER) | payer OTHER | END 2024-11-25 14:32 | disposition home or self-care (01) | LOC: JER 13:58 | DX: E11.65 Type 2 diabetes mellitus with hyperglycemia (principal); Z91.148 Patient's other noncompliance with medication regimen for other reason | CPT/HCPCS: 99283-25 ==